=== PATIENT | female | born 1955 | race Caucasian/White ===

== ENCOUNTER → 2022-02-16 06:31 | Outpatient (CLI) | payer MEDICARE, OTHER, SELFPAY ==
[2022-02-16 22:20] LABS: Creatinine,Urine Random 217 mg/dL (Not Estab.); Microalbumin < 6.000 mg/L (0-16.7)
[2022-02-16 22:31] LABS: Alanine Aminotransferase 37 U/L (12-78); Albumin Level 3.9 g/dl (3.5-5.0); Albumin/Globulin Ratio 1.6 (1.1-1.8); Alkaline Phosphatase 92 U/L (38-126); Anion Gap 11.3 mEq/L (5-15); Aspartate Amino Transferase 46 U/L (14-36); Bilirubin,Total 0.3 mg/dl (0.2-1.3); Blood Urea Nitrogen 14 mg/dl (7-17); Calcium 9.7 mg/dl (8.4-10.2); Carbon Dioxide 30 mmol/L (22.0-30.0); Chloride 105 mmol/L (98-107); Chol/HDL Ratio 8.1 (1-3.5); Cholesterol 274 mg/dl (140-200); Estimated Glomerular Filt Rate 84 ml/min (>60); GFR (African American) 102 ML/MIN (>60); Globulin 2.4 g/dL (1.3-3.2); Glucose 103 mg/dl (74-100); HDL Cholesterol 34 mg/dl (40-60); Potassium 4.3 mmoL/L (3.5-5.1); Sodium 142 mmol/L (136-145); Total Protein,Serum 6.3 g/dl (6.3-8.2); Triglycerides 280 mg/dl (30-150); VLDL Cholesterol 56 mg/dL (0-40)
[2022-02-19 08:00] LABS: Direct LDL Cholesterol 176 mg/dL (100-129)
== END ==
PROVIDERS: PCP Nurse Practitioner; Visit Provider Nurse Practitioner
DX: I10 Essential (primary) hypertension (principal); E78.5 Hyperlipidemia, unspecified
CPT/HCPCS: 80053; 80061; 82043; 82570

== ENCOUNTER 2023-08-08 19:12 | Outpatient (CLI) | payer MEDICARE, OTHER, SELFPAY ==
[2023-08-08 19:38] LABS: Basophils # 0.1 K/mm3 (0-0.2); Basophils % 0.5 % (0.1-2.0); Eosinophils # 0.2 K/mm3 (0.0-0.4); Eosinophils % 1.6 % (0.1-12.0); Hematocrit 55.2 % (37.0-47.0); Lymphocytes # 2.4 K/mm3 (0.7-4.5); Lymphocytes % 24.5 % (10-50); Mean Corpuscular HGB Conc 34.5 g/dL (31.8-35.4); Mean Corpuscular Hemoglobin 32.4 pg (27.0-31.2); Mean Corpuscular Volume 93.8 fl (81-99); Mean Platelet Volume 11.3 fl (7.4-10.4); Monocytes # 0.5 K/mm3 (0.1-1.0); Monocytes % 4.6 % (1.7-9.3); Neutrophils # 6.8 K/mm3 (1.8-7.8); Neutrophils % 68.7 % (37.0-80.0); Platelet Count 225 K/mm3 (142-424); Red Blood Count 5.88 M/mm3 (4.20-5.40); Red Cell Distribution Width 13.5 % (11.5-17.5); White Blood Count 9.8 K/mm3 (4.8-10.8)
[2023-08-08 19:45] LABS: Alanine Aminotransferase 32 U/L (12-78); Albumin Level 3.9 g/dl (3.5-5.0); Albumin/Globulin Ratio 1.6 (1.1-1.8); Alkaline Phosphatase 103 U/L (38-126); Anion Gap 5.7 mEq/L (5-15); Aspartate Amino Transferase 39 U/L (14-36); Bilirubin,Total 0.8 mg/dl (0.2-1.3); Blood Urea Nitrogen 17 mg/dl (7-17); Calcium 9.6 mg/dl (8.4-10.2); Carbon Dioxide 33 mmol/L (22.0-30.0); Chloride 104 mmol/L (98-107); Chol/HDL Ratio 11.3 (1-3.5); Cholesterol 306 mg/dl (140-200); Estimated Glomerular Filt Rate 83 ml/min (>60); GFR (African American) 101 ML/MIN (>60); Globulin 2.5 g/dL (1.3-3.2); Glucose 106 mg/dl (74-100); HDL Cholesterol 27 mg/dl (40-60); Potassium 4.7 mmoL/L (3.5-5.1); Sodium 138 mmol/L (136-145); Total Protein,Serum 6.4 g/dl (6.3-8.2); Triglycerides 312 mg/dl (30-150); VLDL Cholesterol 62 mg/dL (0-40)
[2023-08-08 19:48] LABS: Hemoglobin 19.1 g/dL (12.2-16.2)
[2023-08-08 19:57] LABS: Direct LDL Cholesterol 189.46 mg/dL (100-129)
[2023-08-08 20:05] LABS: Hemoglobin A1C 5.4 % (4.0-6.0)
[2023-08-08 20:14] LABS: Thyroid Stimulating Hormone 1.56 uIU/mL (0.465-4.68)
[2023-08-08 20:33] LABS: Vitamin B12 695 pg/mL (239-931)
[2023-08-08 21:12] LABS: Creatinine,Urine Random 191 mg/dL (Not Estab.)
[2023-08-08 21:27] LABS: Microalbumin < 6.000 mg/L (0-16.7)
== END 2023-08-08 23:59 ==
PROVIDERS: PCP Nurse Practitioner; Visit Provider Nurse Practitioner
DX: E78.5 Hyperlipidemia, unspecified (principal); I10 Essential (primary) hypertension; R73.01 Impaired fasting glucose; Z79.899 Other long term (current) drug therapy
CPT/HCPCS: 80053; 80061; 82043; 82570; 82607; 83036; 84443; 85025

== ENCOUNTER 2023-09-12 19:10 | Outpatient (CLI) | payer MEDICARE, OTHER, SELFPAY ==
[2023-09-12 19:03] LABS: Basophils # 0.1 K/mm3 (0-0.2); Eosinophils # 0.2 K/mm3 (0.0-0.4); Eosinophils % 2.2 % (0.1-12.0); Hematocrit 57.2 % (37.0-47.0); Lymphocytes % 26.2 % (10-50); Mean Corpuscular HGB Conc 32.7 g/dL (31.8-35.4); Mean Corpuscular Hemoglobin 31.6 pg (27.0-31.2); Mean Corpuscular Volume 96.6 fl (81-99); Mean Platelet Volume 11.6 fl (7.4-10.4); Monocytes # 0.4 K/mm3 (0.1-1.0); Monocytes % 4.7 % (1.7-9.3); Neutrophils # 4.9 K/mm3 (1.8-7.8); Neutrophils % 65.9 % (37.0-80.0); Platelet Count 227 K/mm3 (142-424); Red Blood Count 5.93 M/mm3 (4.20-5.40); Red Cell Distribution Width 13.7 % (11.5-17.5); White Blood Count 7.4 K/mm3 (4.8-10.8)
[2023-09-12 19:12] LABS: Hemoglobin 18.6 g/dL (12.2-16.2)
== END 2023-09-12 23:59 ==
PROVIDERS: PCP Nurse Practitioner; Visit Provider Nurse Practitioner
DX: D75.1 Secondary polycythemia (principal)
CPT/HCPCS: 85025

== ENCOUNTER 2024-08-07 11:04 | Outpatient (CLI) | payer MEDICARE, OTHER, SELFPAY ==
[2024-08-07 18:42] LABS: Albumin Level 3.9 g/dl (3.5-5.0); Chloride 103 mmol/L (98-107); Sodium 137 mmol/L (136-145)
[2024-08-07 18:43] LABS: Potassium 4.3 mmoL/L (3.5-5.1)
[2024-08-07 18:45] LABS: Alanine Aminotransferase 26 U/L (12-78); Alkaline Phosphatase 81 U/L (38-126); Anion Gap 7.3 mEq/L (5-15); Aspartate Amino Transferase 34 U/L (14-36); Bilirubin,Total 0.7 mg/dl (0.2-1.3); Blood Urea Nitrogen 19 mg/dl (7-17); Carbon Dioxide 31 mmol/L (22.0-30.0); Cholesterol 294 mg/dl (140-200); Estimated Glomerular Filt Rate 71 ml/min (>60); GFR (African American) 86 ML/MIN (>60); Total Protein,Serum 5.9 g/dl (6.3-8.2); Triglycerides 235 mg/dl (30-150); VLDL Cholesterol 47 mg/dL (0-40)
[2024-08-07 18:46] LABS: Calcium 9.2 mg/dl (8.4-10.2); Chol/HDL Ratio 10.1 (1-3.5); Glucose 99 mg/dl (74-100); HDL Cholesterol 29 mg/dl (40-60)
[2024-08-07 18:50] LABS: Creatinine,Urine Random 109 mg/dL (Not Estab.)
[2024-08-07 18:57] LABS: Direct LDL Cholesterol 200.74 mg/dL (100-129); Microalbumin < 6.000 mg/L (0-16.7)
[2024-08-07 19:15] LABS: Hemoglobin A1C 5.3 % (4.0-6.0)
[2024-08-07 19:35] LABS: Thyroid Stimulating Hormone 2.08 uIU/mL (0.465-4.68)
[2024-08-07 19:55] LABS: Vitamin B12 537 pg/mL (239-931)
== END 2024-08-07 23:59 | disposition home or self-care (01) ==
LOC: LAB.DROPOF 08-08 10:48
PROVIDERS: PCP Nurse Practitioner; Visit Provider Nurse Practitioner
DX: R73.01 Impaired fasting glucose (principal); I10 Essential (primary) hypertension; E78.5 Hyperlipidemia, unspecified
CPT/HCPCS: 80053; 80061; 82043; 82570; 82607; 83036; 84443

== ENCOUNTER 2025-05-28 12:15 | Outpatient (CLI) | payer MEDICARE, OTHER, SELFPAY ==
[2025-05-28 18:45] LABS: Hematocrit 51.8 % (37.0-47.0); Hemoglobin 17.7 g/dL (12.2-16.2); Immature Granulocytes % 0.3 %; Mean Corpuscular HGB Conc 34.2 g/dL (31.8-35.4); Mean Corpuscular Hemoglobin 31.6 pg (27.0-31.2); Mean Corpuscular Volume 92.3 fl (81-99); Nucleated Red Blood Cells % 0 %; Platelet Count 285 K/mm3 (142-424); Red Blood Count 5.61 M/mm3 (4.20-5.40); Red Cell Distribution Width-SD 42.3 fL; White Blood Count 6.3 K/mm3 (4.8-10.8)
[2025-05-28 19:02] LABS: Alanine Aminotransferase 25 U/L (12-78); Albumin Level 3.8 g/dl (3.5-5.0); Albumin/Globulin Ratio 1.5 (1.1-1.8); Alkaline Phosphatase 91 U/L (38-126); Anion Gap 10.6 mEq/L (5-15); Aspartate Amino Transferase 34 U/L (14-36); Bilirubin,Total 0.8 mg/dl (0.2-1.3); Blood Urea Nitrogen 14 mg/dl (7-17); Calcium 9.3 mg/dl (8.4-10.2); Carbon Dioxide 33 mmol/L (22.0-30.0); Chloride 95 mmol/L (98-107); Cholesterol 277 mg/dl (140-200); Creatinine,Serum 0.80 mg/dl (0.52-1.04); Estimated Glomerular Filt Rate 71 ml/min (>60); GFR (African American) 86 ML/MIN (>60); Globulin 2.6 g/dL (1.3-3.2); Glucose 88 mg/dl (74-100); HDL Cholesterol 32 mg/dl (40-60); Potassium 4.6 mmoL/L (3.5-5.1); Sodium 134 mmol/L (136-145); Total Protein,Serum 6.4 g/dl (6.3-8.2); Triglycerides 322 mg/dl (30-150)
[2025-05-28 19:28] LABS: Thyroid Stimulating Hormone 1.83 uIU/mL (0.465-4.68)
[2025-05-28 19:46] LABS: Vitamin B12 782 pg/mL (239-931)
[2025-05-28 22:11] LABS: Hemoglobin A1C 5.2 % (4.0-6.0)
== END 2025-05-28 23:59 ==
LOC: LAB.DROPOF 05-30 11:38
PROVIDERS: PCP Nurse Practitioner; Visit Provider Nurse Practitioner
DX: E78.5 Hyperlipidemia, unspecified (principal); I10 Essential (primary) hypertension; E66.9 Obesity, unspecified; F17.210 Nicotine dependence, cigarettes, uncomplicated; R73.01 Impaired fasting glucose; Z86.39 Personal history of other endocrine, nutritional and metabolic disease
CPT/HCPCS: 80053; 80061; 82043; 82570; 82607; 83036; 84443; 85025